=== PATIENT | female | born 1950 | race Caucasian/White ===

== ENCOUNTER 2018-09-05 11:49 | Inpatient (IN) | payer MEDICARE, OTHER | END 2018-09-08 12:15 | disposition home health service (06) | LOC: PAS IN 11:49 → ORTHO 4S 17:50 | PROC: 0SRC0J9 Replacement of Right Knee Joint with Synthetic Substitute, Cemented, Open Approach (ICD-10-PCS; principal; 2018-09-05 13:21) | DX: M17.11 Unilateral primary osteoarthritis, right knee (principal); I10 Essential (primary) hypertension ==